=== PATIENT | female | born 1955 | race Caucasian/White ===

== ENCOUNTER → 2023-04-20 09:26 | Outpatient (BNVA) | payer MEDICARE, SELFPAY | PROVIDERS: PCP Internal Medicine; Referring Provider Registered Nurse; Visit Provider Psychiatry & Neurology Neurology | DX: G57.93 Unspecified mononeuropathy of bilateral lower limbs (principal); R68.89 Other general symptoms and signs; R71.8 Other abnormality of red blood cells; I73.81 Erythromelalgia; I73.00 Raynaud's syndrome without gangrene; R76.8 Other specified abnormal immunological findings in serum; R79.82 Elevated C-reactive protein (CRP); R76.0 Raised antibody titer | CPT/HCPCS: 99204 ==

== ENCOUNTER → 2023-04-20 09:26 | Outpatient (BNVA) | payer MEDICARE, SELFPAY | PROVIDERS: PCP Internal Medicine; Referring Provider Registered Nurse; Visit Provider Psychiatry & Neurology Neurology | DX: R29.90 Unspecified symptoms and signs involving the nervous system (principal) | CPT/HCPCS: 36415; 82746; 83090; 83735; 83921; 84207; 84591 ==

== ENCOUNTER 2023-05-17 07:38 | Outpatient (CLI) | payer MEDICARE, SELFPAY ==
--- NOTE | 2023-05-17 08:00 | MR_ITS ---
WS: [id number] MRI HEAD WITH CONTRAST TECHNIQUE: Sagittal T1, T2 axial, T2 axial FLAIR, axial susceptibility weighted imaging, axial diffus ion weighted images, and coronal T2 images were obtained. Pre and post-T1 axial and post T1 coronal i mages. ADC and FSPGR images. CLINICAL INFORMATION: R29.90 - Unspecified symptoms and signs involving the ner... COMPARISON: None. FINDINGS: No evidence restricted diffusion to suggest acute ischemia. Ventricular system and basilar cisterns a re patent. Normal posterior fossa. Normal vascular flow voids at the skull base. No extra-axial fluid collections. No evidence of mass or mass effect. Paranasal sinuses and mastoid air cells are well ae rated. Retention cyst left maxillary sinus measuring 1.7 cm. Normal posterior nasopharynx. Normal par apharyngeal fat. Mucosal thickening in the mastoid tips. Small disc protrusions in the upper cervical spine at C3-C4 C 4-C5 worse at C4-C5 with indentation of the cervical cord and mild central canal stenosis. No hemosiderin on the susceptibility weighted images. Normal optic chiasm and pituitary infundibulum. Temporal lobes and hippocampal formations are normal in appearance. No abnormal intracranial enhancement. Normal dural venous sinuses. IMPRESSION: * No evidence of restricted diffusion to suggest acute ischemia. * Minimal small vessel changes. Mild parenchymal volume loss. * No hemosiderin on susceptibility weighted images. * No abnormal gadolinium enhancement. * Small disc protrusions in the upper cervical spine at C3-C4 C4-C5 worse at C4-C5 with indentation of the cervical cord and mild central canal stenosis. This can be further evaluated with cervical spi ne MRI. * No other suspicious findings. 1.
[2023-05-17] MEDS: gadobenate dimeglumine 20 mL vial IV (08:48)
--- NOTE | 2023-05-17 11:07 | XRR_ITS ---
PROCEDURE INFORMATION: Exam: XR Cervical Spine Exam date and time: 05/17/2023 11:23 AM Age: 67 years old Clinical indication: Neck pain; Additional info: G57.93 - unspecified mononeuropathy of bilateral lower limbs TECHNIQUE: Imaging protocol: Radiologic exam of the cervical spine. Views: 2 or 3 views. COMPARISON: MR head wo/w con [id number] 05/17/2023 8:14 AM FINDINGS: Bones/joints: Lateral neutral, flexion, and extension views show no acute fracture. Overall straightening of the natural cervical lordosis. 2 mm anterolisthesis of C3 on C4 and 2 mm retrolisthesis of C5 on C6 in the neutral position. Stable anterolisthesis of C3 on C4 upon flexion with 1 mm retrolisthesis of C5 on C6. Normalization of C3-C4 alignment upon extension with 1 mm retrolisthesis C4 on C5 and 3 mm retrolisthesis of C5 on C6. Moderate intervertebral disc space narrowing and osteophytosis from C4-7. Soft tissues: Unremarkable. XR/XR cervical spine fl/ex [id number] IMPRESSION: 1. No acute findings. 2. Multilevel cervical spine degenerative changes and mild listheses as above.
--- NOTE | 2023-05-17 11:07 | XRR_ITS ---
PROCEDURE INFORMATION: Exam: XR Right Hand Exam date and time: 05/17/2023 11:23 AM Age: 67 years old Clinical indication: Pain; Hand; Bilateral; Additional info: G57.93 - unspecified mononeuropathy of bilateral lower limbs TECHNIQUE: Imaging protocol: Radiologic exam of the right hand. Views: 1 or 2 views. COMPARISON: No relevant prior studies available. FINDINGS: Bones/joints: No acute fracture or dislocation. Mild cortical irregularity at the thumb proximal phalanx head may be sequela of prior trauma. No focal osteopenia or convincing erosion. Joint spacing and alignment are maintained with mild marginal osteophyte formation at the 1st CMC joint, 1st through 4th MCP joints, thumb IP joint, and index finger DIP joint. Soft tissues: Unremarkable. XR/XR hand RT 2V [id number] IMPRESSION: No acute findings.
--- NOTE | 2023-05-17 11:07 | XRR_ITS ---
PROCEDURE INFORMATION: Exam: XR Left Hand Exam date and time: 05/17/2023 11:23 AM Age: 67 years old Clinical indication: Pain; Hand; Bilateral; Additional info: G57.93 - unspecified mononeuropathy of bilateral lower limbs TECHNIQUE: Imaging protocol: Radiologic exam of the left hand. Views: 1 or 2 views. COMPARISON: No relevant prior studies available. FINDINGS: Bones/joints: No acute fracture or dislocation. No focal osteopenia or erosion. Joint spacing and alignment are maintained with minimal marginal osteophyte formation at the index and long finger DIP joints as well as the 2nd through 4th MCP joints and 1st CMC joint. Soft tissues: Unremarkable. XR/XR hand LT 2V [id number] IMPRESSION: No acute findings.
--- NOTE | 2023-05-17 11:07 | XRR_ITS ---
PROCEDURE INFORMATION: Exam: XR Bilateral Sacroiliac Joints Exam date and time: 05/17/2023 11:23 AM Age: 67 years old Clinical indication: Condition or disease; Other: Psoriasis, unspecified; Additional info: L40.9 - psoriasis, unspecified TECHNIQUE: Imaging protocol: XR bilateral XR of the sacroiliac joints. Views: 3 or more views. COMPARISON: No relevant prior studies available. FINDINGS: Bones/joints: No acute fracture. Mild degenerative spurring at the sacroiliac joints. No suspicious sclerosis or erosion. Mild lower lumbar spine degenerative changes. Soft tissues: Unremarkable. Vasculature: Multiple pelvic phleboliths. Other findings: Bilateral tubal occlusion devices. XR/XR sacroiliac jts m 3V [id number] IMPRESSION: Mild sacroiliac joint degenerative change without acute findings or evidence of sacroiliitis.
== END 2023-05-17 07:39 | disposition home or self-care (01) ==
PROVIDERS: PCP Internal Medicine; Visit Provider Psychiatry & Neurology Neurology
DX: R29.90 Unspecified symptoms and signs involving the nervous system (principal); G57.93 Unspecified mononeuropathy of bilateral lower limbs; L40.9 Psoriasis, unspecified; M50.21 Other cervical disc displacement, high cervical region; R76.8 Other specified abnormal immunological findings in serum; M45.0 Ankylosing spondylitis of multiple sites in spine; F41.9 Anxiety disorder, unspecified
CPT/HCPCS: 36415; 70553; 72040; 72202; 73120; 80053; 81001; 82164; 82550; 82728; 82746; 83090; 83516; 83540; 83735; 83921; 84100; 84207; 84591; 85025; 85651; 86036; 86140; 86160; 86162; 86200; 86235; 86255; 86376; 86480; 86704; 86803; 86812; 87340; 99204; A9577

== ENCOUNTER 2023-06-09 14:05 | Outpatient (CLI) | payer MEDICARE, SELFPAY ==
--- NOTE | 2023-06-09 15:15 | MR_ITS ---
WS: [id number] MRI CERVICAL SPINE with and without contrast HISTORY: S19.9XXA - Unspecified injury of neck, initial encounter COMPARISON: Cervical radiographs 05/17/2023 Technique: Multiplanar, multisequence noncontrast imaging of the cervical spine. Postcontrast imaging MultiHance 13 mL. Cervical degenerative curvature. Slight increase in the cervical lordosis. Tiny focus of increased T2 signal in the cervical cord at the C4-5 level. Changes of early myelomalac ia should be considered. Otherwise signal is normal. Advanced degenerative disc disease and cervical osteophytes throughout the cervical spine, most significant at C4-5, C5-6 and C6-7. No fractures. Craniocervical junction, C1 and C2 relationship, odontoid process and soft tissues are normal. C2-C3: Mild bilateral facet arthritis. No stenosis. C3-C4: Shallow central disc protrusion and mild bilateral facet arthritis. No stenosis. C4-C5: Moderate central disc protrusion with annular disc bulging and osteophytic ridging. Moderate b ilateral facet arthritis. Moderate size bilateral foraminal osteophytes. Slightly greater osteophyte development on the LEFT. Mild central with moderate bilateral foraminal stenosis, LEFT greater than R IGHT. C5-C6: Mild osteophytic ridging and moderate facet arthritis. Mild central with moderate bilateral fo raminal stenosis. Effacement of ventral CSF. C6-C7: Broad-based central disc protrusion with osteophytic ridging and disc bulging. Bilateral facet arthritis. Mild central and bilateral foraminal stenosis. Effacement of ventral CSF but no displacem ent of the cord. C7-T1: No stenosis. Paravertebral soft tissues are normal. Postcontrast images are negative for discitis or osteomyelitis. There is a significant amount of donna fact and motion on the postcontrast images. No focal areas of abnormal enhancement. 6.5 mm LEFT thyro id nodule. IMPRESSION: 1. Advanced degenerative disc and degenerative changes at C4-5, C5-6 and C6-7. 2. C4-5: Moderate central disc protrusion with annular disc bulging and osteophytic ridging. Combinat ion of findings resulting in mild central and moderate bilateral foraminal stenosis LEFT greater than RIGHT. 3. C5-6: Mild central and moderate foraminal stenosis. 4. C6-7: Mild central and bilateral foraminal stenosis. 5. C3-4: Shallow central disc protrusion with facet arthritis. 6. Tiny focal area of increased T2 signal in the cervical cord at C4-5. Favor minimal development of myelomalacia. 7. No discitis or osteomyelitis.
[2023-06-09] MEDS: gadobenate dimeglumine 20 mL vial IV (15:59)
== END 2023-06-09 14:06 | disposition home or self-care (01) ==
PROVIDERS: PCP Internal Medicine; Visit Provider Psychiatry & Neurology Neurology
DX: S19.9XXA Unspecified injury of neck, initial encounter (principal); X58.XXXA Exposure to other specified factors, initial encounter; M48.02 Spinal stenosis, cervical region; M47.812 Spondylosis without myelopathy or radiculopathy, cervical region; M50.21 Other cervical disc displacement, high cervical region
CPT/HCPCS: 72156; A9577

== ENCOUNTER → 2023-06-14 14:48 | Outpatient (BNVA) | payer MEDICARE, SELFPAY | PROVIDERS: PCP Internal Medicine; Visit Provider Psychiatry & Neurology Neurology | DX: G57.93 Unspecified mononeuropathy of bilateral lower limbs (principal); I73.00 Raynaud's syndrome without gangrene; R68.89 Other general symptoms and signs | CPT/HCPCS: 99212 ==

== ENCOUNTER → 2023-06-29 09:36 | Outpatient (BNVA) | payer MEDICARE, SELFPAY | PROVIDERS: PCP Internal Medicine; Visit Provider Internal Medicine | DX: R71.8 Other abnormality of red blood cells (principal); R68.89 Other general symptoms and signs; G57.93 Unspecified mononeuropathy of bilateral lower limbs; R76.8 Other specified abnormal immunological findings in serum; M25.50 Pain in unspecified joint; F41.9 Anxiety disorder, unspecified | CPT/HCPCS: 36415; 82728; 82784; 83516; 83540; 84466; 99214 ==

== ENCOUNTER → 2023-07-05 10:52 | Outpatient (BNVA) | payer MEDICARE, SELFPAY | PROVIDERS: PCP Internal Medicine; Referring Provider Psychiatry & Neurology Neurology; Visit Provider Orthopaedic Surgery | DX: M50.021 Cervical disc disorder at C4-C5 level with myelopathy (principal); M41.56 Other secondary scoliosis, lumbar region; M51.36 Other intervertebral disc degeneration, lumbar region; R91.1 Solitary pulmonary nodule; R79.0 Abnormal level of blood mineral; G57.93 Unspecified mononeuropathy of bilateral lower limbs; M48.02 Spinal stenosis, cervical region; M47.816 Spondylosis without myelopathy or radiculopathy, lumbar region; M48.061 Spinal stenosis, lumbar region without neurogenic claudication; M43.16 Spondylolisthesis, lumbar region | CPT/HCPCS: 72050; 72110; 99204 ==

== ENCOUNTER 2023-07-27 12:06 | Outpatient (CLI) | payer MEDICARE, SELFPAY ==
--- NOTE | 2023-07-27 13:00 | MR_ITS ---
WS: [id number] MRI LUMBAR SPINE NONCONTRAST TECHNIQUE: Sagittal T1, T2 and STIR imaging. Axial T1 and T2 imaging. CLINICAL INFORMATION: pain COMPARISON: None. FINDINGS: Mild lumbar curve. No acute compression. Tarlov cyst in the sacrum. Slight anterolisthesis L4 on L5. L1-L2: Mild annular bulging. Mild facet arthropathy. Mild LEFT foraminal narrowing with a small LEFT foraminal protrusion. L2-L3: Mild annular bulging. Mild facet arthropathy. Spinal canal and foramen are patent. L3-L4: Mild annular bulging. Mild facet arthropathy. Mild RIGHT foraminal narrowing with a small RIGH T foraminal protrusion. L4-L5: Mild annular bulging with slight effacement of the ventral thecal sac. Slight narrowing of the subarticular recess bilaterally. Moderate facet arthropathy. Slight RIGHT and no significant LEFT fo raminal narrowing. Moderate facet arthropathy. L5-S1: Mild annular bulging. Mild facet arthropathy. Spinal canal and foramen are patent. Visualized pelvic bony structures: Normal. Paravertebral soft tissues: Normal. IMPRESSION: 1. Mild lumbar curve. No acute compression. Slight anterolisthesis L4 and L5. 2. Mild annular bulging L4-5 with slight effacement of the ventral thecal sac. Slight narrowing of t he RIGHT subarticular recess with encroachment traversing RIGHT L5 nerve root. 3. Tiny LEFT foraminal protrusion L1-2 with mild LEFT foraminal narrowing. 4. Tiny RIGHT foraminal protrusion L3-4 with mild RIGHT foraminal narrowing. 5. Moderate facet arthropathy L3-L4 and L4-L5.
--- NOTE | 2023-07-27 15:00 | XR_ITS ---
WS: [email or web address] SCREENING DEXA SCAN [employer] CLINICAL INFORMATION: weakness and pain COMPARISON: None. FINDINGS: The L1-L4 bone mineral density measures 1.040 g/cm2. This corresponds to a T score score of -1.2 and Z score of 0.4. Left femoral neck bone mineral density measures 0.727 g/cm2. This corresponds to a T score of -2.2 an d Z score of -1.0. Right femoral neck bone mineral density measures 0.712 g/cm2. This corresponds to a T score -2.3of an d Z score of -1.1. Mean femoral neck bone mineral density measures 0.720 g/cm2. This corresponds to a T score of -2.3 an d Z score of -1.0. IMPRESSION: Osteopenia lumbar spine. Osteopenia femoral necks at the upper end of the range. Patient's FRAX calculated 10 year probability for major osteoporotic fracture is 15.8% and osteoporot ic hip fracture is 4.2%.
== END 2023-07-27 12:07 | disposition home or self-care (01) ==
LOC: RAD 12:06
PROVIDERS: PCP Internal Medicine; Visit Provider Orthopaedic Surgery
DX: M51.36 Other intervertebral disc degeneration, lumbar region (principal); M48.061 Spinal stenosis, lumbar region without neurogenic claudication; M51.26 Other intervertebral disc displacement, lumbar region; M47.816 Spondylosis without myelopathy or radiculopathy, lumbar region; Z13.820 Encounter for screening for osteoporosis; M85.89 Other specified disorders of bone density and structure, multiple sites; M48.02 Spinal stenosis, cervical region; G57.93 Unspecified mononeuropathy of bilateral lower limbs; G95.9 Disease of spinal cord, unspecified; R29.898 Other symptoms and signs involving the musculoskeletal system; R53.1 Weakness
CPT/HCPCS: 72148; 77080

== ENCOUNTER → 2023-08-09 13:54 | Outpatient (BNVA) | payer MEDICARE, SELFPAY | PROVIDERS: PCP Internal Medicine; Visit Provider Orthopaedic Surgery | DX: M47.12 Other spondylosis with myelopathy, cervical region (principal); G95.89 Other specified diseases of spinal cord; M48.02 Spinal stenosis, cervical region; Z01.812 Encounter for preprocedural laboratory examination | CPT/HCPCS: 36415; 80053; 81001; 83036; 85025; 99214 ==

== ENCOUNTER → 2023-08-23 14:39 | Outpatient (BNVA) | payer MEDICARE, SELFPAY | PROVIDERS: PCP Internal Medicine; Visit Provider Family Medicine | DX: Z01.818 Encounter for other preprocedural examination (principal) | CPT/HCPCS: 81003 ==

== ENCOUNTER 2023-08-31 16:54 | Observation (INO) | payer MEDICARE, SELFPAY ==
[2023-08-31] VITALS (16 sets, daily range): BP systolic 139–179; BP diastolic 67–106; PULSE 45–96; RESP 16–18; TEMP 36.1–36.4; O2SAT 91–100; BMI 23.8
--- NOTE | 2023-08-31 | XR_ITS ---
WS: [email or web address] Cervical spine, C-arm fluoroscopy views, 08/31/2023 Clinical Data: C4-7 ACDF Comparison: Cervical spine, 07/05/2023 Findings: Dr. Agarwal performed an anterior cervical disc fusion Impression: Anterior cervical disc fusion.
[2023-08-31] MEDS: sodium chloride 0.9% 1,000 ML 30 ML IV (11:27)
--- NOTE | 2023-08-31 12:00 | W.PM.OPSUD ---
Surgery/Procedure H&P Update DATE OF PROCEDURE: August 31, 2023 DATE H&P PERFORMED: 08/23/23 H&P UPDATE INFORMATION: I have reviewed H&P completed within last 30 days, I have examined patient prior to procedure and No changes to prior documentation PREOP DIAGNOSIS: Cervical Spondylosis w/radiculopathy PLANNED PROCEDURE: Operation Date: 08/31/23 12:05 Proposed Procedures p C4/5,C5/6,C6/7 Anterior Cervical Discectomy & Fusion(Not Applicable) - Mook Agarwal DO
--- NOTE | 2023-08-31 12:18 | ANES.PREANE2 ---
Pre-Anesthetic Assessment Height/Weight: Height 1.68 m Weight 67.132 kg Temp Pulse Resp BP Pulse Ox O2 Del Method 97.4 F L 59 L 16 155/78 99 Room Air 08/31/23 10:58 08/31/23 10:58 08/31/23 10:58 08/31/23 10:58 08/31/23 10:58 08/31/23 10:58 Preop Diagnosis: Cervical Spondylosis w/radiculopathy Operation Date: 08/31/23 12:05 Proposed Procedures p C4/5,C5/6,C6/7 Anterior Cervical Discectomy & Fusion(Not Applicable) - Mook Agarwal, DO Familial anesthetic complications: None Was Beta Jamie taken within 24 hours: N/A Was Clonidine taken within 24 hours: N/A Last intake: Intake Last Liquid Date 08/30/23 Last Liquid Time 21:00 Last Solid Date 08/30/23 Last Solid Time 20:00 Social Alcohol (2.5 glasses wine a night) and No tobacco Exam alert, oriented x 3, clear to auscultation bilaterally and regular rate & rhythm Airway Mallampati: Class I Dentition: full CV/HEM Hypertension Metabolic Diabetes Mellitus Anesthetic Plan ASA status: 2 Anesthesia: General Other Pertinent Information alpha gal allergy Medications/Allergies Home Medications Medication Instructions Recorded Confirmed Last Taken Type losartan 50 mg tablet 50 mg PO DAILY 04/20/23 08/30/23 08/31/23 History alprazolam 1 mg tablet (Xanax) 1 mg PO DAILY 07/05/23 08/31/23 08/31/23 History Bone growth stimulator #1 ea 08/12/23 Unknown Rx gabapentin 100 mg capsule 100 mg PO TID 08/30/23 08/30/23 08/31/23 History Allergies Allergy/AdvReac Type Severity Reaction Status Date / Time Sulfa (Sulfonamide Allergy Unknown Verified 08/31/23 10:57 Antibiotics) Alpha-Gal AdvReac Intermediate Nausea and Verified 08/31/23 10:57 (Mogutvxmb-Owtfx-0,3-Gala vomiting Current Medications Generic Name Dose Route Start Last Admin Trade Name Freq PRN Reason Stop Dose Admin Sodium Chloride 1,000 mls @ 30 mls/hr 08/31/23 10:45 08/31/23 11:27 Sodium Chloride 0.9% IV 09/01/23 10:44 30 mls/hr .Q24H LIAM Administration PFSH Anesthesia Social History Smoking and tobacco/nicotine status: never used tobacco/nicotine Alcohol intake: current Substance/Drug Use: never Data Anesthesia Cardiac Studies: No Data to Display
[2023-08-31] MEDS: ceFAZolin 2,000 MG in sodium chloride 0.9% (plus) 50 ML 100 MG IV ×2 (13:13→21:22)
[2023-08-31 13:15] LABS: Glucose Point of Care 79 mg/dL (70-110)
[2023-08-31] MEDS: lidocaine-epi 1% 20 mL INJ INJECTION (13:59)
--- NOTE | 2023-08-31 15:25 | P.OP_ITS ---
Operative Report Date of procedure: August 31, 2023 Pre-op diagnosis: Cervical spondylosis with myelopathy Post-op diagnosis: same Procedure done: 1. Anterior diskectomy C4/5 2. Anterior diskectomy C5/6 3. Anterior discectomy C6/7 4. Insertion of cage C4/5 5. Insertion of cage C5/6 6. Insertion of Cage C6/7 7. Instrumentation with anterior plate from C4-C7 8. Use of allograft Surgeon: Mook Agarwal DO Retail Field Representative: Raymundo Worley Retail Field Representative: The hand frame surgical elastic knitter, Raymundo Worley, DELILAH was needed for his expertise under the microscope. He was important and necessary throughout the procedure to complete in a safe and timely manner. He assisted with patient positioning prepping and draping tissue retraction suctioning of the operative field protection of the dural sac and tissue closure Estimated blood loss (mL): 20 Procedure: 1. Anterior diskectomy C4/5 2. Anterior diskectomy C5/6 3. Anterior discectomy C6/7 4. Insertion of cage C4/5 5. Insertion of cage C5/6 6. Insertion of Cage C6/7 7. Instrumentation with anterior plate from C4-C7 8. Use of allograft The patient was taken to the operating room, where he underwent general endotracheal anesthesia without complications. He was then positioned supine on the operating table, and all areas of impingement were well padded. The arms were carefully padded and tucked at his sides. A roll was placed between the shoulder blades.. An x-ray was done to determine the appropriate level for the skin incision. The entire neck was then sterilely prepped and draped in the usual fashion. Neuromonitoring was attached prior to prepping. A transverse skin incision was made and carried down to the platysma muscle. This was then split in line with its fibers. Blunt dissection was carried down medial to the carotid sheath and lateral to the trachea and esophagus until the anterior cervical spine was visualized. A needle was placed into a disc and an x-ray was done to determine its location. The longus colli muscles were then elevated bilaterally with the electrocautery unit. Self-retaining retractors were placed deep to the longus colli muscle. Attention was brought to the C4/5 level that was confirmed on x-ray. A caspar pin was placed into the C4 vertebrae and the C5 vertebrae. The disk space was then distracted. The microscope was then brought in. A radical anterior discectomies were performed at C4/5. This included complete removal of the anterior annulus, nucleus, and posterior annulus. The posterior longitudinal ligament was removed as were the posterior osteophytes. Foraminotomies were then accomplished bilaterally. This was done using a high speed maria, kerrison rongeurs and curretes Once all of this was accomplished, the curved currette was used to check for any residual compression. The central canal was wide open as were the foramen. A high-speed bur was used to remove the cartilaginous endplates above and below the interspace. Bleeding cancellous bone was exposed. The disc space were measured and appropriate size cage were placed sterilely onto the field. Allograft graft was packed into the cages. The cage was then placed and there was good juxtaposition against the bleeding decorticated surfaces and good distraction of each interspace. Attention was brought to the next interspace. The Ivanhoe pins were removed. Bone wax was used to prevent any bleeding from occurring at the pin sites. Attention was brought to the C5/6 level that was confirmed on x-ray. A caspar pin was placed into the C5 vertebrae and the C6 vertebrae. The disk space was then distracted. The microscope was then brought in. A radical anterior discectomies were performed at C5/6. This included complete removal of the anterior annulus, nucleus, and posterior annulus. The posterior longitudinal ligament was removed as were the posterior osteophytes. Foraminotomies were then accomplished bilaterally. This was done using a high speed maria, kerrison rongeurs and curretes Once all of this was accomplished, the curved currette was used to check for any residual compression. The central canal was wide open as were the foramen. A high-speed bur was used to remove the cartilaginous endplates above and below the interspace. Bleeding cancellous bone was exposed. The disc space were measured and appropriate size cage were placed sterilely onto the field. Allograft graft was packed into the cages. The cage was then placed and there was good juxtaposition against the bleeding decorticated surfaces and good distraction of each interspace. Attention was brought to the next interspace. The Ivanhoe pins were removed. Bone wax was used to prevent any bleeding from occurring at the pin sites. Attention was brought to the C6/7 level that was confirmed on x-ray. A caspar pin was placed into the C6 vertebrae and the C7 vertebrae. The disk space was then distracted. The microscope was then brought in. A radical anterior discectomies were performed at C6/7. This included complete removal of the anterior annulus, nucleus, and posterior annulus. The posterior longitudinal ligament was removed as were the posterior osteophytes. Foraminotomies were then accomplished bilaterally. This was done using a high speed maria, kerrison rongeurs and curretes Once all of this was accomplished, the curved currette was used to check for any residual compression. The central canal was wide open as were the foramen. A high-speed bur was used to remove the cartilaginous endplates above and below the interspace. Bleeding cancellous bone was exposed. The disc space were measured and appropriate size cage were placed sterilely onto the field. Allograft graft was packed into the cages. The cage was then placed and there was good juxtaposition against the bleeding decorticated surfaces and good distraction of each interspace. Attention was brought to the next interspace. The Ivanhoe pins were removed. Bone wax was used to prevent any bleeding from occurring at the pin sites. The appropriate size anterior cervical locking plate was chosen and bent into gentle lordosis. Two screws were then placed into each of the vertebral bodies at C4, C5, C6 and C7. There was excellent purchase. A final x-ray was done confirming good position of the hardware and Cages. The locking screws were then applied, also with excellent purchase. Following a final copious irrigation, there was good hemostasis and no dural leaks. The carotid pulse was strong. The wounds were then closed in layers using 2-0 Vicryl suture for the platysma muscle, 2-0 Vicryl suture for the subcutaneous tissue, and 4-0 monocryl suture in a subcuticular skin closure. Glue was placed followed by application of a sterile dressing. The drain was hooked to bulb suction. A soft collar was applied. The patient was then carefully returned to the supine position on his hospital bed where he was reversed and extubated and taken to the recovery room having tolerated the procedure well.
[2023-08-31] MEDS: HYDROmorphone 1 mg/mL INJ 1 mL 0.5 MG IVP (15:50)
[2023-08-31] MEDS: fentaNYL 50 mcg/mL INJ 2mL IVP (16:00)
[2023-08-31] MEDS: midazolam 1 mg/mL INJ 2 mL 2 MG IVP (16:10)
[2023-08-31] MEDS: ketorolac 30 mg/mL INJ IVP (18:30)
[2023-08-31] MEDS: lactated ringers 1,000 ML 90 ML IV (18:32)
--- NOTE | 2023-08-31 19:59 | PC.NURSE ---
Took serrano out in PACU
[2023-08-31] MEDS: gabapentin 100 mg Capsule PO (21:22)
[2023-09-01] VITALS: BP 114/62; PULSE 56; RESP 17; TEMP 36.6; O2SAT 97
[2023-09-01] MEDS: ketorolac 30 mg/mL INJ IVP (00:42)
[2023-09-01 05:03] VITALS: BP 116/68; PULSE 70; RESP 17; TEMP 36.7; O2SAT 98
[2023-09-01] MEDS: lactated ringers 1,000 ML 90 ML IV (05:22)
[2023-09-01] MEDS: ceFAZolin 2,000 MG in sodium chloride 0.9% (plus) 50 ML 100 MG IV (05:22)
[2023-09-01] MEDS: HYDROcodone-acetaminophen 5-325 mg Tablet PO (05:54)
[2023-09-01 07:10] VITALS: BP 111/69; PULSE 58; RESP 15; O2SAT 98
--- NOTE | 2023-09-01 07:43 | P.PN_ITS ---
Subjective Subjective: POD 1 Patient reports swallowing difficulty reports mild neck pain reports improvement of arm pain. Denies shortness of breath, chest pain, headaches. Vitals/I&O/Wt Last Vital Signs Temp 98.0 F 09/01/23 05:03 Pulse 58 L 09/01/23 07:10 Resp 15 09/01/23 07:10 BP 111/69 09/01/23 07:10 Pulse Ox 98 09/01/23 07:10 O2 Del Method Room Air 09/01/23 07:10 O2 Flow Rate 6 08/31/23 16:30 08/31/23 09/01/23 09/01/23 22:59 06:59 14:59 Intake Total 1050 / 1100 1025 / 2125 Output Total 100 / 100 30 / 130 Balance 950 / 1000 995 / 1994 Weight last 48 hrs Weight 167 lb 4 oz Weight 148 lb Weight 148 lb Physical Exam Narrative: Patient is alert and oriented x3 with a good general appearance normal mood and affect. Mildly tender with palpation about the incisional site Hemovac drain intact. Incision appears to be healing nicely without signs of erythema or drainage. No signs of infection. Good motor strength throughout both upper extremities. Appears to fire in all motor groups with 4/5 strength. Hands are warm good cap refill in all digits. Normal sensation to light touch in all dermatomal areas. Urinary Catheter Management: Mcintyre: Cath Placed During This Visit: yes, but has since been removed by the nurse Urinary Catheter Date of Insertion: 08/31/23 Urinary Catheter Time of Insertion: 13:20 Date Urinary Catheter Removed: 08/31/23 Time Urinary Catheter Discontinued: 15:25 A&P Assessment and plan (1) Status post cervical spinal fusion: We will discontinue the Hemovac drain. Encourage incentive spirometer for pulmonary toilet. Continue Chancellor J collar. Follow-up in the office in [address] Agarwal for wound check. Attestations Medical Necessity Statement*: Discharge home after deseeding the Hemovac drain follow-up in the office with Dr. Agarwal in 1 week Coding Level of Care Code Acute Code for Chg Fwd Diagnoses Status post cervical spinal fusion Z98.1
[2023-09-01 08:12] VITALS: O2SAT 98
--- NOTE | 2023-09-01 09:04 | PC.NURSE ---
Patient is very strict on medication times and food choices. Gabapentin she takes at 6 am and is refusing to take this morning now since she is on a strick time frame. Patient states she will take the rest of her medications at home to get back on normal schedule.
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
[2023-09-01 11:16] VITALS: BP 124/73; PULSE 70; RESP 16; TEMP 36.8; O2SAT 98
[2023-09-01 12:48] VITALS: BP 124/73; PULSE 70; RESP 16; TEMP 36.8; O2SAT 98
--- NOTE | 2023-09-01 12:50 | PC.NURSE ---
Discussed discharge with patient and spouse. Discussed follow up visits, new medications and continued medications. Discussed all the restrictions from the surgial incision. Patient verbalized understanding
== END 2023-09-01 12:00 | disposition home or self-care (01) ==
LOC: MEDSURG 16:54
PROVIDERS: Admitting Provider Orthopaedic Surgery; PCP Internal Medicine; Visit Provider Orthopaedic Surgery
PROC: 0RB30ZZ Excision of Cervical Vertebral Disc, Open Approach (ICD-10-PCS; CPT 22551; principal; 2023-08-31 11:35)
DX: M47.12 Other spondylosis with myelopathy, cervical region (principal); I10 Essential (primary) hypertension; E11.9 Type 2 diabetes mellitus without complications
CPT/HCPCS: 20930; 22551; 22552 ×2; 22846; 22853 ×3; 36415; 36416; 51702; 72040; 76000; 82962; 86850; 86900; 97110; 97161; 97760; C1713; C1763; C9359; G0378; J0690; J1100; J1170; J1885; J2250; J2405; J2704; J2710; J3010; J3490; J7030; J7120

== ENCOUNTER → 2023-09-14 10:22 | Outpatient (BNVA) | payer MEDICARE, SELFPAY | PROVIDERS: PCP Internal Medicine; Visit Provider Physician Assistant | DX: Z47.89 Encounter for other orthopedic aftercare (principal); Z98.1 Arthrodesis status | CPT/HCPCS: 72040; 99024 ==

== ENCOUNTER → 2023-10-18 10:11 | Outpatient (BNVA) | payer MEDICARE, SELFPAY | PROVIDERS: PCP Internal Medicine; Visit Provider Orthopaedic Surgery | DX: Z98.1 Arthrodesis status; Z47.89 Encounter for other orthopedic aftercare | CPT/HCPCS: 72040; 99024 ==

== ENCOUNTER → 2023-11-15 13:32 | Outpatient (BNVA) | payer MEDICARE, SELFPAY | PROVIDERS: PCP Internal Medicine; Visit Provider Orthopaedic Surgery | DX: Z98.1 Arthrodesis status (principal); Z47.89 Encounter for other orthopedic aftercare | CPT/HCPCS: 72040; 99024 ==

== ENCOUNTER → 2024-02-14 13:29 | Outpatient (BNVA) | payer MEDICARE, SELFPAY | PROVIDERS: PCP Internal Medicine; Visit Provider Orthopaedic Surgery | DX: Z98.1 Arthrodesis status (principal) | CPT/HCPCS: 72040; 99213 ==

== ENCOUNTER → 2024-08-14 10:18 | Outpatient (BNVA) | payer MEDICARE, SELFPAY | PROVIDERS: PCP Internal Medicine; Visit Provider Orthopaedic Surgery | DX: Z98.1 Arthrodesis status (principal); R13.10 Dysphagia, unspecified; M54.2 Cervicalgia | CPT/HCPCS: 72040; 99214 ==

== ENCOUNTER 2024-08-28 12:36 | Outpatient (CLI) | payer MEDICARE, SELFPAY ==
--- NOTE | 2024-08-28 13:00 | MR_ITS ---
WS: [id number] MRI CERVICAL SPINE NONCONTRAST TECHNIQUE: Sagittal T1, T2 and STIR imaging. Axial T2, gradient, and fiesta imaging. CLINICAL INFORMATION: Neck Pain COMPARISON: MRI cervical 06/09/2023 FINDINGS: Slight exaggeration of the normal cervical lordosis. Prior postoperative changes ACDF C4-C7. Cord sig nal is normal. No high-grade central canal stenosis. Postoperative changes are new since 2022 with de compression of the spinal canal stenosis. C2-C3: Mild facet arthropathy. Spinal canal and foramen are patent. C3-C4: Mild disc bulging. Tiny central protrusion. Spinal canal and foramen are patent. Mild facet ar thropathy. C4-C5: Postoperative changes ACDF. Moderate LEFT and mild RIGHT bony foraminal narrowing. Moderate fa cet arthropathy. C5-C6: Postoperative changes ACDF. Mild bilateral bony foraminal narrowing. Spinal canal is patent. M oderate facet arthropathy. C6-C7: Postoperative changes ACDF. Moderate LEFT and mild RIGHT bony foraminal narrowing. Spinal romario l is patent. Mild facet arthropathy. C7-T1: Spinal canal and foramen are patent. Visualized brain stem structures: Normal. Prevertebral soft tissues: Normal. MR/MR cervical spin wo con* [id number] IMPRESSION: 1. Slight exaggeration of the normal cervical lordosis. Postoperative changes are new compared to previous with ACDF C4-C7. 2. Shallow central protrusion C3-C4 similar to previous. Spinal canal and fora men are patent at this level. 3. Mild to moderate chronic bony foraminal narrowing worse at LEFT C4-5, bilat eral C5-6 worse on the LEFT, and LEFT C6-7.
== END 2024-08-28 12:37 | disposition home or self-care (01) ==
LOC: RAD 12:38
PROVIDERS: PCP Internal Medicine; Visit Provider Orthopaedic Surgery
DX: M99.61 Osseous and subluxation stenosis of intervertebral foramina of cervical region (principal); M50.321 Other cervical disc degeneration at C4-C5 level; M50.322 Other cervical disc degeneration at C5-C6 level; M43.22 Fusion of spine, cervical region
CPT/HCPCS: 72141

== ENCOUNTER → 2024-09-18 13:02 | Outpatient (BNVA) | payer MEDICARE, SELFPAY | PROVIDERS: PCP Internal Medicine; Visit Provider Orthopaedic Surgery | DX: Z98.1 Arthrodesis status | CPT/HCPCS: 99214 ==

== ENCOUNTER 2024-12-28 09:20 | Outpatient (CLI) | payer MEDICARE, SELFPAY ==
--- NOTE | 2024-12-28 09:26 | FL_ITS ---
WS: [id number] Exam: FL barium swallow [id number] Date/Time of Exam: 12/28/2024 9:47 AM Reason For Exam: [id number] Fluoroscopy time: Minutes # of spot films: 3 Oral pharyngeal phase of swallowing was normal. There was no indication of esophageal stricture or mass. Anterior cervical plate from C4-C7 causes very minimal posterior compression of the cervical esophagus but there would not appear to be significant luminal compromise. Esophageal motility was normal. There was no sign of hiatal hernia or gastroesophageal reflux. FL/FL barium swallow [id number] IMPRESSION: 1. Anterior cervical fusion plate from C4-C7 causes very minimal posterior extr insic compression of the cervical esophagus but there does not appear to be sig nificant luminal compromise. The remainder of the esophagus was normal. No mass or stricture.
== END 2024-12-28 09:21 | disposition home or self-care (01) ==
LOC: RAD 09:26
PROVIDERS: Visit Provider Specialist
DX: R13.12 Dysphagia, oropharyngeal phase (principal); Z98.890 Other specified postprocedural states; R93.7 Abnormal findings on diagnostic imaging of other parts of musculoskeletal system
CPT/HCPCS: 74220

== ENCOUNTER → 2025-04-25 10:47 | Outpatient (BNVA) | payer MEDICARE, SELFPAY | PROVIDERS: Visit Provider Orthopaedic Surgery | DX: Z98.1 Arthrodesis status (principal) | CPT/HCPCS: 72050; 99213 ==